=== PATIENT | female | born 1950 | race Caucasian/White ===

== ENCOUNTER → 2017-07-07 | Outpatient (CLI) | payer OTHER ==
--- NOTE | 2017-07-10 08:26 | MM ---
Reason for exam: screening (asymptomatic). Last mammogram was performed 4 years and 6 months ago. History: Patient is postmenopausal and had first child at age 34. Benign excisional biopsy of the left breast, June 12, 2001. Physical Findings: A clinical breast exam by your physician is recommended on an annual basis and results should be correlated with mammographic findings. MG Screening Mammo w CAD Bilateral CC and MLO view(s) were taken. Prior study comparison: December 26, 2012, [facility] DIGITAL RIGHT MAMMOGRAM w/CAD. December 19, 2012, bilateral digital screening mammo w/CAD. There are scattered fibroglandular densities. Finding: There is a 8 mm circumscribed round mass in the outer quadrant, anterior middle position of the right breast. ASSESSMENT: Incomplete: need additional imaging evaluation, BI-RAD 0 RECOMMENDATION: Special view mammogram and ultrasound of the right breast. [facility] will attempt to contact patient to return for supplemental views and ultrasound.
== END | disposition home or self-care (01) ==
LOC: RADMAMWWP 12:30
PROVIDERS: ATTEND Family Medicine
DX: Z12.31 Encounter for screening mammogram for malignant neoplasm of breast (principal)
CPT/HCPCS: 77067

== ENCOUNTER → 2017-07-17 | Outpatient (CLI) | payer OTHER ==
--- NOTE | 2017-07-17 12:26 | MM ---
Reason for exam: additional evaluation requested from abnormal screening. Last mammogram was performed less than 1 month ago. History: Patient is postmenopausal and had first child at age 34. Benign core biopsy of the left breast, 2013. Benign excisional biopsy of the left breast, June 12, 2001. Took hormonal contraceptives beginning at age 22. Physical Findings: Nurse did not find any significant physical abnormalities on exam. MG 3D Work Up W/Cad RT Spot compression CC and ML view(s) were taken of the right breast. Prior study comparison: July 07, 2017, bilateral MG screening mammo w CAD. December 26, 2012, [facility] DIGITAL RIGHT MAMMOGRAM w/CAD. The breast tissue is heterogeneously dense. This may lower the sensitivity of mammography. There is a mass in the lower inner quadrant measuring 0.4mm corresponding to a sonographic complicated cyst see the same day. These results were verbally communicated with the patient and result sheet given to the patient on 07/17/17. ASSESSMENT: Benign, BI-RAD 2 RECOMMENDATION: Return to routine screening mammogram schedule for both breasts.
--- NOTE | 2017-07-17 12:29 | USB ---
Reason for exam: additional evaluation requested from abnormal screening. History: Patient is postmenopausal and had first child at age 34. Benign core biopsy of the left breast, 2013. Benign excisional biopsy of the left breast, June 12, 2001. Took hormonal contraceptives beginning at age 22. US Breast Workup Limited RT Right breast ultrasound demonstrates a 0.7 x 0.7 x 0.7cm oval, mixed lesion at 8 o'clock increasing through transmission, no vascular flow, internal debris compatible with a complicated cyst. These results were verbally communicated with the patient and result sheet given to the patient on 07/17/17. ASSESSMENT: Benign, BI-RAD 2 RECOMMENDATION: Return to routine screening mammogram schedule for both breasts.
== END | disposition home or self-care (01) ==
LOC: RADMAMWWP 08:18
PROVIDERS: ATTEND Family Medicine
DX: R92.8 Other abnormal and inconclusive findings on diagnostic imaging of breast (principal)
CPT/HCPCS: 77065; 76642; G0279

== ENCOUNTER → 2020-06-04 | Outpatient (CLI) | payer MEDICARE ==
--- NOTE | 2020-06-04 10:24 | CT ---
EXAMINATION TYPE: CT brain wo con DATE OF EXAM: 06/04/2020 COMPARISON: None INDICATION: Syncope DLP: 978.20 mGycm, Automated exposure control for dose reduction was used. CONTRAST: None CT of the brain is performed utilizing 3 mm thick sections through the posterior fossa and 3 mm thick sections through the remaining calvarium. Study is performed within 24 hours of arrival to the hosp ital. No abnormal hyperdensity is present to suggest an acute intracranial hemorrhage. No mass lesion is evident. There is likely a pacchionian granulation along the left temporal region, benign finding. No acute infarcts are evident. Mild periventricular white matter hypodensity may be present, likely o n the basis of chronic white matter ischemic changes. Ventricles and sulci are appropriate for the patient age. Paranasal sinuses and mastoid air cells within the pmyvg-bp-eral are clear. IMPRESSIONS: 1. Mild chronic appearing periventricular white matter ischemic changes.
== END | disposition home or self-care (01) ==
LOC: RADCTMAIN 07:32
PROVIDERS: ATTEND Family Medicine
DX: I67.82 Cerebral ischemia (principal)
CPT/HCPCS: 70450

== ENCOUNTER → 2021-11-05 | Outpatient (CLI) | payer MEDICARE ==
--- NOTE | 2021-11-06 04:44 | MR ---
EXAMINATION TYPE: MR iac wo/w con DATE OF EXAM: 11/05/2021 COMPARISON: None HISTORY: Vertigo, claudio hearing loss CONTRAST: Standard multiplanar, multisequence MRI departmental protocol images were obtained without contrast a nd with 8 mL intravenous Gadavist gadolinium contrast. The ventricles appear normal. There is no mass effect or midline shift. No sign of intracranial hemor rhage. Diffusion images show no sign of an acute infarct. The arriaza-white matter structures have fairly normal signal pattern on the T2 and FLAIR images. No bebeto dence of cerebral edema. There is widening of the subarachnoid space over the left lateral frontal co nvexity that measures up to 9 mm in thickness. This could be an arachnoid cyst. The length is 2 cm. T he brainstem is intact. No evidence of posterior fossa mass. The internal auditory canals appear norm al. No evidence of cerebellopontine angle mass. Acoustic nerve and vestibular nerve appear intact. No pathologic posterior fossa enhancement. Sella turcica is intact. No evidence of orbital mass. The corpus callosum is intact. No evidence of any inflammatory process involving the mastoid sinuses or temporal bones. IMPRESSION: Negative MR scan of the brain. No evidence of posterior fossa abnormality.
== END | disposition home or self-care (01) ==
LOC: RADMRIMAIN 09:22
PROVIDERS: ATTEND Otolaryngology
DX: R42 Dizziness and giddiness (principal)
CPT/HCPCS: 70553; A9585

== ENCOUNTER → 2022-02-02 | Day surgery (SDC) | payer MEDICARE | LOC: OR 07:24 | PROVIDERS: ATTEND Internal Medicine Hematology & Oncology | DX: C88.0 Waldenstrom macroglobulinemia (principal); Z53.9 Procedure and treatment not carried out, unspecified reason ==

== ENCOUNTER 2022-02-16 06:18 | Day surgery (SDC) | payer MEDICARE ==
[2022-02-14 14:45] VITALS: BMI 28.1
[~2022-02-16 06:18] MED LIST: LACTATED RINGERS 1,000 ML IV SCH; LIDOCAINE 1% (10MG/ML) FOR IV START INTRADERMA PRN
[2022-02-16 07:00] VITALS: TEMP 97.3
[2022-02-16] MEDS ORDERED: PROPOFOL 10 MG/ML 20 ML VIAL IV ONE (07:03)
[2022-02-16 07:41] VITALS: BP 106/64; PULSE 85; RESP 18
--- NOTE | 2022-02-16 07:57 | PCN ---
PROCEDURE NOTE PREOPERATIVE DIAGNOSIS: Waldenstrom macroglobulinemia. POSTOPERATIVE DIAGNOSIS: Waldenstrom macroglobulinemia. ANESTHESIA: Local with IV systemic sedation. DESCRIPTION OF PROCEDURE: Utilizing sterile technique, the skin overlying the right iliac crest was prepared with Betadine and alcohol. After adequate sterile draping, local anesthesia and systemic sedation, size 11 4-inch Jamshidi needle was utilized to access the periosteum with ease. A total of 15 mL of aspirate and 1 cm core biopsies were obtained. The patient tolerated the procedure very well. There was no immediate procedure related complications. TOTAL BLOOD LOSS: Less than 1 mL. Results pending. MMODL / IJN: [id number] /
[2022-02-16 08:13] LABS: Basophils # (A) 0.1 k/uL (0-0.2); Basophils % (A) 1 %; Eosinophils # (A) 0.2 k/uL (0-0.7); Eosinophils % (A) 4 %; HCT 26.5 % (34.0-46.0); HGB 8.6 gm/dL (11.4-16.0); Lymphocytes % (A) 37 %; MCH 29.2 pg (25.0-35.0); MCHC 32.5 g/dL (31.0-37.0); MCV 89.9 fL (80.0-100.0); Mean Platelet Volume 8.3; Monocytes # (A) 0.4 k/uL (0-1.0); Monocytes % (A) 7 %; Neutrophils # (A) 2.8 k/uL (1.3-7.7); Neutrophils % (A) 51 %; Platelet Count 270 k/uL (150-450); RBC 2.94 m/uL (3.80-5.40); RDW 13.9 % (11.5-15.5); Reticulocyte % 1.7 % (0.5-2.0); WBC 5.6 k/uL (3.8-10.6)
== END 2022-02-16 08:22 | disposition home or self-care (01) ==
LOC: OR 06:18
PROVIDERS: ATTEND Internal Medicine Hematology & Oncology
DX: C88.0 Waldenstrom macroglobulinemia (principal); Z79.890 Hormone replacement therapy; Z79.899 Other long term (current) drug therapy; E03.9 Hypothyroidism, unspecified; I10 Essential (primary) hypertension; J45.909 Unspecified asthma, uncomplicated; Z80.43 Family history of malignant neoplasm of testis; Z86.19 Personal history of other infectious and parasitic diseases; Z87.891 Personal history of nicotine dependence; Z98.890 Other specified postprocedural states
CPT/HCPCS: 85025; 85045; 38222; J2704

== ENCOUNTER 2022-06-03 19:37 | Emergency (ER) | payer MEDICARE ==
[2022-06-03] MEDS ORDERED: MORPHINE SULFATE 4 MG/ML SYRINGE IM STA (19:46)
--- NOTE | 2022-06-03 20:37 | ED ---
Fall HPI - General Chief Complaint: Fall Stated Complaint: fall, leg injury Time Seen by Provider: 06/03/22 19:39 Source: patient, RN notes reviewed Mode of arrival: ambulatory - History of Present Illness Initial Comments: 72-year-old female, alert and oriented 4, presents with complaints of missing the last step and falling onto her right side today. Patient states that she has left ankle, left knee and left hip pain. She states she also hit the left side of her head. Did not lose consciousness. Does not take any blood thinners. She does have a history of asthma, hypertension and migraines. MD Complaint: fall -: hour(s) Fall From: standing, down stairs (#) (2) When Fall Occurred: 1 hour [employer]OTA [employer] Loss of Consciousness: none Prolonged Down Time?: no Symptoms Prior to Fall: none Location: head (left parietal) Location - Extremities: Left: Thigh (hip), Knee, Ankle Severity scale (1-10): 5 Context: tripped/slipped (missed last step) - Related Data Home Medications Medication Instructions Recorded Confirmed Albuterol Sulfate [Albuterol 2 puff PO DIRECTED PRN 02/14/22 02/16/22 Sulfate Hfa] Budesonide [Pulmicort Flexhaler] 1 puff IH DIRECTED PRN 02/14/22 02/16/22 Levothyroxine Sodium [Synthroid] 25 mcg PO DAILY 02/14/22 02/16/22 Montelukast Sodium [Singulair] 10 mg PO HS 02/14/22 02/16/22 Omeprazole [PriLOSEC] 20 mg PO AC-BRKFST 02/14/22 02/16/22 amLODIPine [Norvasc] 5 mg PO DAILY 02/14/22 02/16/22 hydroCHLOROthiazide 12.5 mg PO DAILY 02/14/22 02/16/22 Allergies Allergy/AdvReac Type Severity Reaction Status Date / Time adhesive tape Allergy Rash/Hives Verified 02/16/22 06:43 eucalyptus Allergy asthma Verified 02/16/22 06:43 attack perfume Allergy asthma Verified 02/16/22 06:43 attack antibiotic Allergy Unknown Uncoded 02/16/22 06:43 Review of Systems ROS Statement: Those systems with pertinent positive or pertinent negative responses have been documented in the HPI. ROS Other: All systems not noted in ROS Statement are negative. Past Medical History Past Medical History: Asthma, GERD/Reflux, Hypertension, Thyroid Disorder Additional Past Medical History / Comment(s): migraines, seasonal asthma, fatigue, increased protein in blood History of Any Multi-Drug Resistant Organisms: None Reported Past Surgical History: Breast Surgery Additional Past Surgical History / Comment(s): left breast lumpectomy Past Anesthesia/Blood Transfusion Reactions: Motion Sickness, Postoperative Nausea & Vomiting (PONV) Additional Past Anesthesia/Blood Transfusion Reaction / Comment(s): diff waking up. Past Psychological History: Anxiety Smoking Status: Former smoker Past Alcohol Use History: Rare Past Drug Use History: None Reported - Past Family History Mother Family Medical History: No Reported History General Exam Limitations: no limitations General appearance: alert, in no apparent distress Head exam: Present: other (abrasion to left parietal scalp with small hematoma) Eye exam: Present: normal appearance. Absent: scleral icterus, conjunctival injection, nystagmus, periorbital swelling ENT exam: Present: mucous membranes moist Neck exam: Present: full ROM. Absent: tenderness, meningismus, lymphadenopathy, thyromegaly Respiratory exam: Absent: respiratory distress, accessory muscle use Cardiovascular Exam: Present: regular rate GI/Abdominal exam: Present: soft. Absent: tenderness, rigid Extremities exam: Present: normal capillary refill. Absent: pedal edema Left Hip exam: Present: tenderness, pelvic stability. Absent: laceration, deformity, dislocation, erythema, external rotation, internal rotation, shortening Upper Leg exam: Absent: tenderness, swelling Knee exam: Present: tenderness, full knee extension. Absent: swelling, abrasion, laceration, ecchymosis, deformity, dislocation, erythema, effusion Lower Leg exam: Absent: tenderness, swelling, ecchymosis, deformity Ankle exam: Present: tenderness, swelling (lateral). Absent: abrasion, laceration, ecchymosis, deformity, crepitus, dislocation, erythema Foot/Toe exam: Present: full ROM. Absent: tenderness, abrasion, laceration, ecchymosis, deformity, crepitus, calcaneal tenderness, tenderness at base of 5th metatarsal Neurovascular tendon exam: Present: no vascular compromise. Absent: abnormal cap refill, extremity cold to touch, pallor, foot drop Neurological exam: Present: alert, oriented X3 Psychiatric exam: Present: normal affect, normal mood Skin exam: Present: warm, dry, normal color. Absent: cyanosis, diaphoretic, petechiae, pallor Course Vital Signs 06/03/22 19:40 Temperature 97.6 F Pulse Rate 78 Respiratory 18 Rate Blood Pressure 123/70 O2 Sat by Pulse 97 Oximetry Medical Decision Making - Medical Decision Making CT of the brain interpreted by me shows no midline shift or intracranial hemorrhage. No evidence of skull fracture. Radiologist interpretation no acute intracranial process. Small left lateral scalp hematoma without evidence of fracture. X-ray of the left ankle interpreted by me shows fracture to the lateral malleolus. Radiologist interpretation oblique fracture through the distal fibula. Malleolus fracture with soft tissue swelling. X-ray of the left knee interpreted by me shows a tibial plateau fracture. Radiologist interpretation acute intra-articular tibial plateau fracture with associated lipohemarthrosis. Consider further evaluation with CT. X-ray of the left hip and pelvis interpreted by me shows no evidence of fracture or dislocation. Radiologist's interpretation no acute process. CT of the left knee shows comminuted intra-articular fracture with 4mm displacement and 10mm of depression of the left tibial plateau. Medial femoral condyle with displacement. Lipohemarthrosis. Long leg splint was applied Patient is neurovascularly and intact. Resting comfortably on the cart. Dr. Poole spoke with Dr. Hernandez recommended transfer. Patient agreeable to being transferred in [facility]. Patient accepted by Dr. Macario for an ER to ER transfer. Was pt. sent in by a medical professional or institution? @ -no Did you speak to anyone other than the patient for history? @ -no Did you review nursing and triage notes? @ -yes i agree Were old charts reviewed? @ -no Differential Diagnosis? @ -fractures, hip dislocation, sprains, contusions, skull fracture, ICB, EKG interpreted by me (3pts min.)? @ -n/a X-rays interpreted by me (1pt min.)? @ -yes as above CT interpreted by me (1pt min.)? @ -no U/S interpreted by me (1pt. min.)? @ n/a What testing was considered but not performed? (CT, X-rays, U/S, labs)? Why? @ none What meds were considered but not given? Why? @ -none Did you discuss the management of the patient with other professionals? @ -Dr Poole ortho Did you reconcile home meds? @ -no Was smoking cessation discussed for >3mins.? @ -[none] Was critical care preformed (if so, how long)? @ no Were there social determinants of health that impacted care today? How? (Homelessness, low income, unemployed, alcoholism, drug addiction, transportati on, low edu. Level, literacy, decrease access to med. care, halfway, rehab)? @ none Was there de-escalation of care discussed even if they declined? (Discuss DNR or withdrawal of care, Hospice)? @ -no What co-morbidities impacted this encounter? (DM, HTN, Smoking, COPD, CAD, Cancer, CVA, Hep., AIDS, mental health diagnosis, sleep apnea, morbid obesity)? @ -asthma, HTN, migraines Was patient admitted / discharged? @ -admitted, transfer [facility] Undiagnosed new problem with uncertain prognosis? @ -[none] Drug Therapy requiring intensive monitoring for toxicity (Heparin, Nitro, Insulin, Cardizem)? @ -[none] Were any procedures done? @ -splinting Diagnosis/symptom? @ -Left tibial plateau fracture, left lateral malleolus fracture, left parietal hematoma, status post fall Acute, or Chronic, or Acute on Chronic? @ -acute Uncomplicated (without systemic symptoms) or Complicated (systemic symptoms)? @ -[default] Side effects of treatment? @ -[none] Exacerbation, Progression, or Severe Exacerbation] @ -[no] Poses a threat to life or bodily function? @ -[no] Disposition Clinical Impression: Fall, Fractured lateral malleolus, Tibial plateau fracture, left Disposition: OTHER INSTITUTION NOT DEFINED Referrals: Chelsey Maddox DO [Primary Care Provider] - 1-2 days Decision Date: 06/03/22 Decision Time: 22:51 - Out of Hospital Transfer - Req. Specs Out of Hospital Transfer - Requested Specifics: Other Emergency Center ([facility])
--- NOTE | 2022-06-03 21:09 | XR ---
EXAMINATION TYPE: XR Hip LT and AP Pelvis DATE OF EXAM: 06/03/2022 8:48 PM INDICATION: Patient age:Female; 72 years old; Reason for study: fall; [facility]. COMPARISON: None. TECHNIQUE: The left hip was examined in the frontal and lateral projections and a AP pelvis. FINDINGS: No evidence for acute process, joint dislocation or significant soft tissue swelling. IMPRESSION: No acute process.
--- NOTE | 2022-06-03 21:12 | XR ---
EXAMINATION TYPE: XR knee complete LT DATE OF EXAM: 06/03/2022 8:48 PM INDICATION: Patient age:Female; 72 years old; Reason for study: fall; COMPARISON: None. TECHNIQUE: The Left knee(s) was examined in Frontal, lateral and oblique projections. FINDINGS: Acute fracture of the tibial plateau with intra-articular extension and fracture line extends out the posterior metaphysis region. Fluid fluid level within the suprapatellar joint effusion. There is mil d degeneration changes of the tibial plateau. Additional fracture line is thought to be present in th e medial tibial plateau. A fabella is present. The remainder of the soft tissues are grossly unremark able. IMPRESSION: Acute intra-articular tibial plateau fracture with associated lipohemarthrosis. Consider further eval uation with CT.
--- NOTE | 2022-06-03 21:14 | XR ---
EXAMINATION TYPE: XR ankle complete LT DATE OF EXAM: 06/03/2022 8:48 PM INDICATION: Patient age:Female; 72 years old; Reason for study: fall; [facility]. COMPARISON: None TECHNIQUE: The left ankle is imaged in frontal, lateral and oblique projections. FINDINGS: Acute oblique fracture through the distal fibula. No definitive intra-articular extension. The tibia appears intact. There is soft tissue swelling on the fracture site. Calcaneal plantar spurring and Ac hilles enthesophyte noted. IMPRESSION: Left lateral malleolus fracture with associated soft tissue swelling.
--- NOTE | 2022-06-03 21:16 | CT ---
EXAMINATION TYPE: CT brain wo con CT DLP: 1127.4 mGycm, Automated exposure control for dose reduction was used. DATE OF EXAM: 06/03/2022 8:55 PM COMPARISON: 06/04/2020 CLINICAL INDICATION:Female, 72 years old with history of fall, TECHNIQUE: Brain: Axial CT images of the brain were obtained with coronal and sagittal reformats created and rev iewed. Contrast used: None. Oral contrast used: None. FINDINGS: Brain: Extra-axial spaces: No abnormal extra-axial fluid collections. Similar left CSF attenuating lesion al dmitriy the left frontal lobe could represent arachnoid cyst. Ventricular system: Within normal limits Cerebral parenchyma: No acute intraparenchymal hemorrhage or mass effect. The arriaza-white junction is well differentiated. Cerebellum: Unremarkable. Mass effect: No evidence of midline shift. Intracranial vasculature: Atherosclerotic calcifications of the intracranial vessels. Soft tissues: Small left lateral scalp hematoma. Calvarium/osseous structures: No depressed skull fracture. Paranasal sinuses and mastoid air cells: Mild scattered paranasal sinus disease. Visualized orbits: Orbital contents are intact. IMPRESSION: 1. No acute intracranial process. 2. Small left lateral scalp hematoma without evidence of fracture.
--- NOTE | 2022-06-03 22:13 | CT ---
EXAMINATION TYPE: CT knee LT wo con CT DLP: 221 mGycm, Automated exposure control for dose reduction was used. DATE OF EXAM: 06/03/2022 9:46 PM COMPARISON: Radiograph same day. CLINICAL INDICATION:Female, 72 years old with history of fracture;, left knee fx after fall TECHNIQUE: Axial images were obtained of the left knee . Additional coronal and sagittal reformatted images and soft tissue and bone window were obtained for review. 3-D reconstruction was created on a separate workstation. Contrast used: None Oral contrast used: None FINDINGS: Comminuted fracture of the tibial plateau extending across the medial lateral portions of t he intra-articular surface with the medial tibial plateau fracture fragment displaced up to 4 mm and the lateral fracture fragment posteriorly depressed at least 10 mm. Fracture line extends to the meta physis. There is a fracture of the medial femoral epicondyle with 3 mm displacement. The proximal portions of the fibula are intact. The more distal portion was found to be fractured on prior imaging. Joint effusion consistent with lipohemarthrosis with layering fluid fluid level. A fabella is present. There is presumably edema/blood products extending to the myofascial planes of the posterior compartments of the leg on the left. IMPRESSION: 1. Comminuted intra-articular fracture with displacement and depression of the left tibial plateau. 2. Medial femoral epicondyle with displacement. 3. Lipohemarthrosis.
[2022-06-03] MEDS ORDERED: fentaNYL (PF) 50 MCG/ML 2 ML AMP IVP PRN (23:24)
[2022-06-03] MEDS ORDERED: SODIUM CHLORIDE 0.9% 1,000 ML IV SCH (23:30)
[2022-06-04] LABS: Basophils # (A) 0.1 k/uL (0-0.2); Basophils % (A) 0 %; Eosinophils # (A) 0.1 k/uL (0-0.7); Eosinophils % (A) 1 %; HCT 27.8 % (34.0-46.0); HGB 9.3 gm/dL (11.4-16.0); Lymphocytes # (A) 1.6 k/uL (1.0-4.8); Lymphocytes % (A) 13 %; MCH 29.4 pg (25.0-35.0); MCHC 33.7 g/dL (31.0-37.0); MCV 87.3 fL (80.0-100.0); Mean Platelet Volume 8.9; Monocytes # (A) 0.5 k/uL (0-1.0); Monocytes % (A) 4 %; Neutrophils # (A) 10.5 k/uL (1.3-7.7); Neutrophils % (A) 82 %; Platelet Count 295 k/uL (150-450); RBC 3.18 m/uL (3.80-5.40); RDW 13.7 % (11.5-15.5); WBC 12.8 k/uL (3.8-10.6)
[2022-06-04 00:07] LABS: Prothrombin Time 10.6 sec (9.0-12.0)
[2022-06-04 00:19] LABS: Calcium 8.8 mg/dL (8.4-10.2); Potassium 3.7 mmol/L (3.5-5.1)
[2022-06-04 00:34] VITALS: BP 122/70; PULSE 68; RESP 18; TEMP 98.1
== END 2022-06-04 00:20 | disposition other institution (70) ==
LOC: EC 19:37
DX: S82.62XA Displaced fracture of lateral malleolus of left fibula, initial encounter for closed fracture (principal); S82.142A Displaced bicondylar fracture of left tibia, initial encounter for closed fracture; J45.909 Unspecified asthma, uncomplicated; I10 Essential (primary) hypertension; K21.9 Gastro-esophageal reflux disease without esophagitis; E07.9 Disorder of thyroid, unspecified; F41.9 Anxiety disorder, unspecified; Z91.09 Other allergy status, other than to drugs and biological substances; Z79.890 Hormone replacement therapy; Z79.899 Other long term (current) drug therapy; Z91.048 Other nonmedicinal substance allergy status; Z88.1 Allergy status to other antibiotic agents; Z87.891 Personal history of nicotine dependence; W01.0XXA Fall on same level from slipping, tripping and stumbling without subsequent striking against object, initial encounter
CPT/HCPCS: 36415; 80048; 85025; 85610; 73502; 73562; 73610; 70450; 73700; 99285; 96374; 96372; J2270; J3010

== ENCOUNTER → 2023-03-06 | Outpatient (CLI) | payer MEDICARE ==
[2023-03-06 16:09] LABS: ALT 11 U/L (8-44); AST 12 U/L (13-35); Albumin 2.4 d/dL (3.8-4.9); Albumin/Globulin Ratio 0.63 Ratio (1.60-3.17); Alkaline Phosphatase 59 U/L (41-126); BUN/Creat Ratio 8.61 Ratio (12.00-20.00); Blood Urea Nitrogen 28.4 mg/dL (9.0-27.0); Calcium 9.1 mg/dL (8.7-10.3); Carbon Dioxide 23.1 mmol/L (21.6-31.8); Chloride 108 mmol/L (96-109); Globulin 3.8 d/dL (1.6-3.3); Glucose 104 mg/dL (70-110); Potassium 4.3 mmol/L (3.5-5.5); Sodium 142 mmol/L (135-145); Total Bilirubin <0.2 mg/dL (0.3-1.2); Total Protein 6.2 d/dL (6.2-8.2)
== END | disposition home or self-care (01) ==
LOC: LABWHC1 11:22
PROVIDERS: ATTEND Internal Medicine
DX: N18.4 Chronic kidney disease, stage 4 (severe) (principal)
CPT/HCPCS: 36415; 80053

== ENCOUNTER → 2023-08-16 | Outpatient (CLI) | payer MEDICARE ==
[2023-08-16 15:38] LABS: Appearance,Urine Clear (Clear); Bilirubin,Urine Negative (Negative); Blood,Urine Trace (Negative); Color,Urine Yellow (Yellow); Ketones,Urine Negative (Negative); Nitrite,Urine Negative (Negative); PH, Urine 6.5; Specific Gravity,Urine 1.016 (1.001-1.030); Urobilinogen,Urine 0.2 E.U./DL
[2023-08-16 15:46] LABS: Bacteria,Urine 2+ (None Seen)
[2023-08-16 16:16] LABS: MCH 26.4 pg (27.0-32.0); MCHC 30.3 g/dL (32.0-37.0); MCV 87.1 FL (80.0-97.0); Mean Platelet Volume 11.9 FL (9.5-12.2); NRBC Per 100 WBC 0 X 10*3/uL (0.00-0.01); Platelet Count 328 X 10*3/uL (140-440); RBC 3.79 X 10*6/uL (4.10-5.20); RDW 14.4 % (11.5-14.5); WBC 5.96 X 10*3/uL (4.50-10.00)
[2023-08-16 18:08] LABS: % Iron Saturation 12.87 (12.00-45.00); ALT 12 U/L (8-44); AST 9 U/L (13-35); Albumin 2.9 g/dL (3.8-4.9); Albumin/Globulin Ratio 0.78 Ratio (1.60-3.17); Alkaline Phosphatase 59 U/L (41-126); BUN/Creat Ratio 6.88 Ratio (12.00-20.00); Blood Urea Nitrogen 27.5 mg/dL (9.0-27.0); Calcium 9.1 mg/dL (8.7-10.3); Carbon Dioxide 21.2 mmol/L (21.6-31.8); Chloride 108 mmol/L (96-109); Ferritin 15.8 ng/mL (10.0-291.0); Globulin 3.7 g/dL (1.6-3.3); Glucose 95 mg/dL (70-110); Iron 35 UG/DL (50-170); Phosphorus 4.4 mg/dL (2.4-5.1); Potassium 4.4 mmol/L (3.5-5.5); Sodium 143 mmol/L (135-145); Total Bilirubin 0.2 mg/dL (0.3-1.2); Total Iron Binding Capacity 272 UG/DL (228-460); Total Protein 6.6 g/dL (6.2-8.2); Uric Acid 5.3 mg/dL (2.9-7.7)
[2023-08-16 19:18] LABS: Urine Creatinine 81.4 mg/dL (28.0-217.0)
[2023-08-16 19:49] LABS: Microalbumin Creatinine Ratio >5405 mg/g Cr (0-30)
== END | disposition home or self-care (01) ==
LOC: LABWHC1 09:55
PROVIDERS: ATTEND Internal Medicine
DX: N18.4 Chronic kidney disease, stage 4 (severe) (principal); D63.1 Anemia in chronic kidney disease; N39.0 Urinary tract infection, site not specified; N25.81 Secondary hyperparathyroidism of renal origin; M10.9 Gout, unspecified; E55.9 Vitamin D deficiency, unspecified; R80.9 Proteinuria, unspecified
CPT/HCPCS: 36415; 80053; 81001; 82043; 82306; 82570; 82728; 83540; 83550; 83735; 83970; 84100; 84550; 85027

== ENCOUNTER → 2023-09-13 | Outpatient (CLI) | payer MEDICARE ==
[2023-09-13 18:56] LABS: HCT 32.3 % (37.2-46.3); HGB 9.9 g/dL (12.0-15.0); MCH 26.7 pg (27.0-32.0); MCHC 30.7 g/dL (32.0-37.0); MCV 87.1 FL (80.0-97.0); Mean Platelet Volume 11.5 FL (9.5-12.2); NRBC Per 100 WBC 0 X 10*3/uL (0.00-0.01); Platelet Count 357 X 10*3/uL (140-440); RBC 3.71 X 10*6/uL (4.10-5.20); WBC 7.25 X 10*3/uL (4.50-10.00)
[2023-09-13 19:27] LABS: % Iron Saturation 7.87 (12.00-45.00); ALT 15 U/L (8-44); AST 12 U/L (13-35); Albumin 2.9 g/dL (3.8-4.9); Albumin/Globulin Ratio 0.78 Ratio (1.60-3.17); Alkaline Phosphatase 63 U/L (41-126); Blood Urea Nitrogen 33.1 mg/dL (9.0-27.0); Calcium 9.2 mg/dL (8.7-10.3); Chloride 106 mmol/L (96-109); Ferritin 13.5 ng/mL (10.0-291.0); Globulin 3.7 g/dL (1.6-3.3); Glucose 91 mg/dL (70-110); Iron 21 UG/DL (50-170); Magnesium 2.3 mg/dL (1.5-2.4); Phosphorus 4.8 mg/dL (2.4-5.1); Potassium 3.9 mmol/L (3.5-5.5); Sodium 141 mmol/L (135-145); Total Bilirubin <0.2 mg/dL (0.3-1.2); Total Iron Binding Capacity 267 UG/DL (228-460); Total Protein 6.6 g/dL (6.2-8.2); Uric Acid 7.1 mg/dL (2.9-7.7)
[2023-09-13 20:22] LABS: Appearance,Urine Cloudy (Clear); Bilirubin,Urine Negative (Negative); Blood,Urine Small (Negative); Color,Urine Yellow (Yellow); Ketones,Urine Negative (Negative); Nitrite,Urine Negative (Negative); PH, Urine 5.5; Specific Gravity,Urine 1.029 (1.001-1.030); Urobilinogen,Urine 0.2 E.U./DL
[2023-09-13 21:17] LABS: Bacteria,Urine 2+ (None Seen)
[2023-09-13 23:19] LABS: Microalbumin Creatinine Ratio >2418 mg/g Cr (0-30)
== END | disposition home or self-care (01) ==
LOC: LABWHC1 11:43
PROVIDERS: ATTEND Internal Medicine
DX: N25.81 Secondary hyperparathyroidism of renal origin (principal); N18.5 Chronic kidney disease, stage 5; D63.1 Anemia in chronic kidney disease; N39.0 Urinary tract infection, site not specified; E55.9 Vitamin D deficiency, unspecified; M10.9 Gout, unspecified; R80.9 Proteinuria, unspecified
CPT/HCPCS: 36415; 80053; 81001; 82043; 82306; 82570; 82728; 83540; 83550; 83735; 83970; 84100; 84550; 85027

== ENCOUNTER 2023-09-21 11:45 | Day surgery (SDC) | payer MEDICARE ==
[2023-09-21] MEDS ORDERED: LIDOCAINE 1% (10MG/ML) FOR IV START INTRADERMA PRN (12:23)
[2023-09-21] MEDS ORDERED: MIDAZOLAM 2 MG/2 ML VIAL IV PRN (12:23)
[2023-09-21] MEDS: LACTATED RINGERS 1,000 ML IV SCH (12:33)
--- NOTE | 2023-09-21 12:48 | P.GSHP ---
History of Present Illness H&P Date: 09/21/23 Chief Complaint: Renal failure 73-year-old female known to our service. She and I spoke by phone recently. She is interested in proceeding with peritoneal dialysis catheter insertion. Kidney function has gradually declined. No history of hernias. Past Medical History Past Medical History: Asthma, GERD/Reflux, Hypertension, Thyroid Disorder Additional Past Medical History / Comment(s): migraines, seasonal asthma, fatigue, increased protein in blood History of Any Multi-Drug Resistant Organisms: None Reported Past Surgical History: Breast Surgery Additional Past Surgical History / Comment(s): left breast lumpectomy Past Anesthesia/Blood Transfusion Reactions: Motion Sickness, Postoperative Nausea & Vomiting (PONV) Additional Past Anesthesia/Blood Transfusion Reaction / Comment(s): diff waking up. Past Alcohol Use History: Rare Additional Past Alcohol Use History / Comment(s): quit smoking 35 yrs ago, smoked for 5 yrs - Past Family History Mother Family Medical History: No Reported History Medications and Allergies Home Medications Medication Instructions Recorded Confirmed Type Budesonide [Pulmicort Flexhaler] 1 puff IH DIRECTED PRN 02/14/22 09/19/23 History Levothyroxine Sodium [Synthroid] 25 mcg PO QAM 02/14/22 09/19/23 History Montelukast Sodium [Singulair] 10 mg PO HS 02/14/22 09/19/23 History Omeprazole [PriLOSEC] 20 mg PO AC-BRKFST 02/14/22 09/19/23 History amLODIPine [Norvasc] 10 mg PO QAM 02/14/22 09/19/23 History Zanubrutinib [Brukinsa] 80 mg PO BID 09/18/23 09/19/23 History Ascorbic Acid [Vitamin C] 1,000 mg PO DAILY 09/19/23 09/19/23 History Calcium Carbonate [Calcium] 600 mg PO DAILY 09/19/23 09/19/23 History Cetirizine HCl [Zyrtec] 10 mg PO DAILY 09/19/23 09/19/23 History Cholecalciferol [Vitamin D3 (25 1,000 unit PO DAILY 09/19/23 09/19/23 History Mcg = 1000 Iu)] Cyanocobalamin (Vitamin B-12) 1,000 mcg PO DAILY 09/19/23 09/19/23 History [Vitamin B-12] FLUoxetine HCL 40 mg PO DAILY 09/19/23 09/19/23 History Glucosam/Chond/Hyalu/Cf Borate 1 tab PO DAILY 09/19/23 09/19/23 History [Move Free Joint Health Tablet] Multivit with Calcium,Iron,Min 1 tab PO DAILY 09/19/23 09/19/23 History [Women's Multivitamin] Torsemide [Demadex] 10 mg PO DAILY 09/19/23 09/19/23 History Zinc Gluconate [Zinc] 50 mg PO DAILY 09/19/23 09/19/23 History traZODone HCL [Desyrel] 50 mg PO DAILY 09/19/23 09/19/23 History Allergies Allergy/AdvReac Type Severity Reaction Status Date / Time adhesive tape Allergy Rash/Hives Verified 09/21/23 12:42 eucalyptus Allergy asthma Verified 09/21/23 12:42 attack perfume Allergy asthma Verified 09/21/23 12:42 attack antibiotic Allergy Unknown Uncoded 09/21/23 12:42 Surgical - Exam Physical exam: General: Well-developed, well-nourished HEENT: Normocephalic, sclerae nonicteric Abdomen: Nontender, nondistended Extremities: No edema Neuro: Alert and oriented Assessment and Plan (1) Renal failure Narrative/Plan: 73-year-old female with renal failure. Will proceed with peritoneal dialysis catheter insertion at this time. Risks of bleeding, infection, scarring, poor function, adhesions, bowel injury, fluid leak, peritonitis discussed. She understands and wishes to proceed. Current Visit: Yes Status: Acute Code(s): N19 - UNSPECIFIED KIDNEY FAILURE SNOMED Code(s): 48699291
[2023-09-21] MEDS: ACETAMINOPHEN TAB 500 MG TAB PO PRN (12:57)
[2023-09-21] MEDS: ONDANSETRON 4 MG/2 ML VIAL IVP ONE (12:57)
[2023-09-21] MEDS: DEXAMETHASONE SOD PHOSPHATE 4 MG/ML 1 ML VIAL IV ONE (12:57)
[2023-09-21] MEDS: HEPARIN SODIUM,PORCINE 5,000 UNIT/ML 1 ML VIAL SQ PRN (12:57)
[2023-09-21 13:14] LABS: ALT 16 U/L (4-34); AST 20 U/L (14-36); African American GFR (CKD) 11 (>60 ml/min/1.73 sqM); Alkaline Phosphatase 73 U/L (38-126); Anion Gap 5 mmol/L; Blood Urea Nitrogen 40 mg/dL (7-17); Calcium 9.1 mg/dL (8.4-10.2); Carbon Dioxide 24 mmol/L (22-30); Chloride 110 mmol/L (98-107); Glucose 91 mg/dL (74-99); Non-African American GFR(CKD) 9 (>60 ml/min/1.73 sqM); Potassium 3.8 mmol/L (3.5-5.1); Sodium 139 mmol/L (137-145); Total Bilirubin 0.6 mg/dL (0.2-1.3); Total Protein 7.6 g/dL (6.3-8.2)
[2023-09-21] MEDS ORDERED: PROPOFOL 10 MG/ML 20 ML VIAL IV ONE (13:49)
[2023-09-21] MEDS ORDERED: SUCCINYLCHOLINE CHLORIDE 200 MG/10 ML VIAL IV ONE (13:49)
[2023-09-21] MEDS ORDERED: ePHEDrine 50 MG/ML 1 ML VIAL ONE (13:49)
[2023-09-21] MEDS ORDERED: LIDOCAINE 1% INJ 10MG/ML (20 ML MDV) ONE (13:49)
[2023-09-21] MEDS ORDERED: fentaNYL (PF) 50 MCG/ML 2 ML AMP ONE (13:49)
[2023-09-21] MEDS: BUPIVACAINE (PF) 0.25% 10 ML VIAL SQ ONE ×2 (14:15)
[2023-09-21] MEDS: MINERAL OIL 1 APPLIC/ML OIL MISCELLANE ONE (14:16)
[2023-09-21] MEDS ORDERED: traMADol 50 MG TAB PO PRN (14:47)
[2023-09-21] MEDS ORDERED: NALOXONE 0.4 MG/ML 1 ML VIAL IV PRN (14:47)
--- NOTE | 2023-09-21 14:48 | P.OP ---
Date of Procedure: 09/21/23 Procedure(s) Performed: PREOPERATIVE DIAGNOSIS: Renal failure POSTOPERATIVE DIAGNOSIS: Same PROCEDURE: Peritoneal dialysis catheter insertion SURGEON: Aiden EBL: Minimal ANESTHESIA: General COMPLICATIONS: None OPERATIVE PROCEDURE: The patient was placed in the operative table in the supine position. The abdomen was prepped and draped in usual sterile fashion. A small vertical incision was made in the right periumbilical location. Dissection down through the subcutaneous tissues took place using electrocautery. The anterior rectus was divided vertically using the scalpel. The rectus was bluntly. The posterior rectus was visualized. An 0 Vicryl pursestring was placed. A small opening in the posterior rectus fascia and peritoneum took place using a Metzenbaum scissors. There were no adhesions to the suture that was placed. The pigtail catheter was advanced into the pelvis over a stylette. No resistance was met. The inner cuff was secured to the fascia using the 0 Vicryl pursestring that was placed. The catheter was tunneled to an exit site in the right lateral lower quadrant. The catheter was connected to the 1 L bag of saline and approximated 800 mL of saline was easily introduced into the peritoneal cavity. The fluid was then allowed to evacuate. The majority of the fluid was returned. The anterior rectus fascia was then reapproximated using a running 0 Vicryl stitch. The subcutaneous tissues reprepped using 3-0 Vicryl sutures and the skin using 4-0 Monocryl sutures. The outpatient dialysis adapter was applied to the end of the catheter. Sterile dressings were then applied after skin glue was placed over the incision. DISPOSITION: Stable to recovery room
[2023-09-21 15:07] VITALS: TEMP 97.7
[2023-09-21] MEDS: HYDROmorphone 0.5 MG/0.5 ML SYRINGE IVP PRN (15:25)
[2023-09-21] MEDS: traMADol 50 MG TAB PO ONE (16:41)
[2023-09-21 16:55] VITALS: RESP 16
[2023-09-21 17:44] VITALS: BP 133/78; PULSE 89
[2023-09-21 18:43] LABS: Hepatitis A Antibody IgM Nonreactive (Nonreactive); Hepatitis B Core IgM Nonreactive (Nonreactive); Hepatitis B Surface Antigen Nonreactive (Nonreactive); Hepatitis C IgG Antibody Nonreactive (Nonreactive)
== END 2023-09-21 17:32 | disposition home or self-care (01) ==
LOC: OR 11:45
PROVIDERS: ATTEND Surgery
DX: I12.9 Hypertensive chronic kidney disease with stage 1 through stage 4 chronic kidney disease, or unspecified chronic kidney disease (principal); N18.9 Chronic kidney disease, unspecified; J45.909 Unspecified asthma, uncomplicated; K21.9 Gastro-esophageal reflux disease without esophagitis; E07.9 Disorder of thyroid, unspecified; G43.909 Migraine, unspecified, not intractable, without status migrainosus; F41.9 Anxiety disorder, unspecified; Z79.51 Long term (current) use of inhaled steroids; Z79.890 Hormone replacement therapy; Z87.891 Personal history of nicotine dependence; Z79.899 Other long term (current) drug therapy
CPT/HCPCS: 80053; 80074; 49421; C1752; J0330; J1644; J1100; J0690; J2405; J2001; J3010; J2704; J1170; J0665

== ENCOUNTER → 2023-10-11 | Outpatient (CLI) | payer MEDICARE ==
[2023-10-11 15:28] LABS: Appearance,Urine Clear (Clear); Bilirubin,Urine Negative (Negative); Blood,Urine Trace (Negative); Color,Urine Yellow (Yellow); Ketones,Urine Negative (Negative); Nitrite,Urine Negative (Negative); PH, Urine 6.5; Specific Gravity,Urine 1.018 (1.001-1.030); Urobilinogen,Urine 0.2 E.U./DL
[2023-10-11 15:48] LABS: Bacteria,Urine 3+ (None Seen)
[2023-10-11 16:43] LABS: HGB 11.5 g/dL (12.0-15.0); MCHC 30.3 g/dL (32.0-37.0); MCV 89.2 FL (80.0-97.0); Mean Platelet Volume 11.3 FL (9.5-12.2); NRBC Per 100 WBC 0 X 10*3/uL (0.00-0.01); Platelet Count 381 X 10*3/uL (140-440); RBC 4.26 X 10*6/uL (4.10-5.20); RDW 17.8 % (11.5-14.5); WBC 9.08 X 10*3/uL (4.50-10.00)
[2023-10-11 16:52] LABS: % Iron Saturation 35.19 (12.00-45.00); ALT 12 U/L (8-44); AST 16 U/L (13-35); Albumin 3.1 g/dL (3.8-4.9); Albumin/Globulin Ratio 0.78 Ratio (1.60-3.17); Alkaline Phosphatase 72 U/L (41-126); BUN/Creat Ratio 9.02 Ratio (12.00-20.00); Blood Urea Nitrogen 41.5 mg/dL (9.0-27.0); Calcium 9.9 mg/dL (8.7-10.3); Carbon Dioxide 23.6 mmol/L (21.6-31.8); Chloride 102 mmol/L (96-109); Glucose 76 mg/dL (70-110); Iron 76 UG/DL (50-170); Magnesium 2.2 mg/dL (1.5-2.4); Phosphorus 4.8 mg/dL (2.4-5.1); Sodium 142 mmol/L (135-145); Total Bilirubin 0.2 mg/dL (0.3-1.2); Total Iron Binding Capacity 216 UG/DL (228-460); Total Protein 7.1 g/dL (6.2-8.2)
[2023-10-11 19:42] LABS: Urine Creatinine 98.6 mg/dL (28.0-217.0)
[2023-10-11 19:50] LABS: Microalbumin Creatinine Ratio >4462 mg/g Cr (0-30)
== END | disposition home or self-care (01) ==
LOC: LABWHC1 11:26
PROVIDERS: ATTEND Nurse Practitioner Family
DX: N25.81 Secondary hyperparathyroidism of renal origin (principal); N18.5 Chronic kidney disease, stage 5; D63.1 Anemia in chronic kidney disease; N39.0 Urinary tract infection, site not specified; E55.9 Vitamin D deficiency, unspecified; M10.9 Gout, unspecified; R80.9 Proteinuria, unspecified
CPT/HCPCS: 36415; 80053; 81001; 82043; 82306; 82570; 82728; 83540; 83550; 83735; 83970; 84100; 84550; 85027

== ENCOUNTER → 2023-11-06 | Outpatient (CLI) | payer MEDICARE ==
--- NOTE | 2023-11-06 14:34 | US ---
EXAMINATION TYPE: US venous doppler duplex LE RT DATE OF EXAM: 11/06/2023 2:16 PM COMPARISON: NONE CLINICAL INDICATION: Female, 73 years old with history of I82.90 ACUTE EMBOLISM AND THROMBOSIS OF UNS PECIFIE; Right leg swelling. No redness or swelling. Renal disease. SIDE PERFORMED: Right TECHNIQUE: The lower extremity deep venous system is examined utilizing real time linear array sonog sara with graded compression, doppler sonography and color-flow sonography. VESSELS IMAGED: Common Femoral Vein Deep Femoral Vein Greater Saphenous Vein * Femoral Vein Popliteal Vein Small Saphenous Vein * Proximal Calf Veins (* superficial vessels) Right Leg: Negative for DVT IMPRESSION: Grayscale, color doppler, spectral doppler imaging performed of the deep veins of the lo wer extremities. There is normal flow, compressibility, vascular waveforms.
== END | disposition home or self-care (01) ==
LOC: RADUSWWP 13:42
PROVIDERS: ATTEND Internal Medicine
DX: I82.90 Acute embolism and thrombosis of unspecified vein (principal); I82.501 Chronic embolism and thrombosis of unspecified deep veins of right lower extremity

== ENCOUNTER → 2023-12-20 | Outpatient (CLI) | payer MEDICARE | END | disposition home or self-care (01) | LOC: LABPRL 12:00 | PROVIDERS: ATTEND Internal Medicine Hematology & Oncology | DX: E03.9 Hypothyroidism, unspecified (principal); I10 Essential (primary) hypertension; C88.0 Waldenstrom macroglobulinemia; D64.89 Other specified anemias; E85.81 Light chain (AL) amyloidosis; J45.909 Unspecified asthma, uncomplicated; R06.02 Shortness of breath; Z71.3 Dietary counseling and surveillance | CPT/HCPCS: 80053; 82784; 83883 ==

== ENCOUNTER → 2024-02-09 | Outpatient (CLI) | payer MEDICARE ==
--- NOTE | 2024-02-09 12:22 | XR ---
Abdomen HISTORY: Displacement of intraperitoneal dialysis catheter. COMPARISON: None. TECHNIQUE: 3 supine views of the abdomen were obtained. FINDINGS: There is a peritoneal dialysis drainage catheter in the left lower quadrant of the abdomen. The bowel gas is unremarkable. There is no evidence of obstruction. 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 No suspicious abdominal or pelvic calcifications are seen. IMPRESSION: 1. Nonspecific abdomen. 2. intraperitoneal dialysis catheter in the left lower quadrant of the abdomen. [facility], , 02/09/2024 12:19 PM
== END | disposition home or self-care (01) ==
LOC: RADXRMAIN 11:38
PROVIDERS: ATTEND Internal Medicine
DX: T85.621A Displacement of intraperitoneal dialysis catheter, initial encounter (principal)
CPT/HCPCS: 74018